=== PATIENT | female | born 1945 | race Caucasian/White ===

== ENCOUNTER 2018-08-23 08:30 | Inpatient (IN) | payer OTHER ==
[~2018-08-23] VITALS: Ht 144.8 cm; Wt 54.4 kg
[2018-08-23] MEDS ORDERED: IRBESARTAN150 MG (10:42)
[2018-08-23] MEDS ORDERED: HYDROCHLOROTHIA25 MG PO (11:06)
[2018-08-28] MEDS ORDERED: ASPIR-LOW81 MG PO (06:37)
[2018-08-28] MEDS ORDERED: OXYC1TAB9 PO (06:37)
[2018-08-28] MEDS ORDERED: DUI500 PO (06:37)
[2018-08-28] MEDS ORDERED: INTEGRA PLUS C1 EACH PO (06:37)
== END 2018-08-28 09:59 | disposition home or self-care (01) | DRG 483 ==
LOC: SURH 08-27 06:29 → O/R 08-27 06:29 → SURH 08-27 08:30
PROVIDERS: ADMIT Orthopaedic Surgery Sports Medicine
PROC: 0RRJ0JZ Replacement of Right Shoulder Joint with Synthetic Substitute, Open Approach (ICD-10-PCS; principal; 2018-08-27 15:00)
DX: M19.011 Primary osteoarthritis, right shoulder (principal); I10 Essential (primary) hypertension

== ENCOUNTER 2024-10-11 11:30 | Inpatient (IN) | payer OTHER ==
[~2024-10-11] VITALS: Ht 144.8 cm; Wt 54.4 kg
[~2024-10-11 11:30] MED LIST: ASPIR-LOW81 MG PO; DUI500 PO; HYDROCHLOROTHIA25 MG PO; INTEGRA PLUS C1 EACH PO; IRBESARTAN150 MG; OXYC1TAB9 PO
[2024-10-11 12:20] LABS: BASO % 0.5 % (0.1-1.2); EOS # 0.12 (0.04-0.54); EOS % 1.9 % (0.7-7.0); LYMPH # 1.49 (1.18-3.74); LYMPH % 24.0 % (19.3-53.1); MEAN PLATELET VOLUME 10.70 fl (9.4-12.4); MONO # 0.56 (0.24-0.82); MONO % 9.0 % (4.7-12.5); NEUT # 4.00 (1.56-6.13); NEUT % 64.4 % (34.0-71.1); RED CELL DISTRIBUTION WIDTH 12.6 % (11.6-14.4)
[2024-10-11 12:22] LABS: URINE APPEARANCE Clear; URINE BILIRRUBIN Negative (NEGATIVE); URINE BLOOD Moderate; URINE COLOR Yellow; URINE GLUCOSE Negative (NEGATIVE); URINE KETONE Negative (NEGATIVE); URINE LEUKOCYTE Negative; URINE NITRATE Negative; URINE PROTEIN Negative (NEGATIVE); URINE UROBILINOGEN 0.2 E.U./dl
[2024-10-11 12:23] LABS: URINE BACTERIA 4.7 uL (0.0-1933); URINE RBC 68.1 uL (0.0-20.8)
[2024-10-11 12:42] LABS: INR 0.94
[2024-10-11 12:44] VITALS: BP 143/81
[2024-10-11 12:48] LABS: URINE CAST 0.00 uL (0.0-1.40); URINE EPITHELIAL CELLS 0.6 uL (0.0-38.8); URINE WBC 0.4 uL (0.0-23.2)
[2024-10-11 13:08] LABS: ALT/SGPT 25.0 U/L (12-78); AST/SGOT 20.0 U/L (15-37); BILIRUBIN TOTAL 0.77 mg/dL (0.3-1.2); BUN CREA RATIO 43.0 (7.0-25.0); CREATININE SERUM 0.72 mg/dL (0.55-1.02); GFR 78.54; GLOBULINA 3.4 G/DL (2.4-3.5); GLUCOSE FASTING 94.0 mg/dL (65-100); OSMOLALITY SERUM 291.0 MOSM/KG (275-295)
[2024-10-11 14:19] LABS: RH NEGATIVE
[2024-10-21] MEDS ORDERED: KETOROLAC TROMETHAMINE 60 MG VIAL IM ONE (14:45)
[2024-10-21] MEDS ORDERED: LIDOCAINE HCL 1%/EPINEPHRINE 20ML VIAL IJ ONE (14:45)
[2024-10-21] MEDS ORDERED: TRANEXAMIC ACID 100MG/1ML (1000MG) AMPUL IV ONE (14:45)
[2024-10-21] MEDS ORDERED: BUPIVACAINE HCL 30 ML VIAL IJ ONE (14:45)
[2024-10-21] MEDS ORDERED: CEFAZOLIN SODIUM 1,000 MG VIAL IV ONE (14:45)
[2024-10-21] MEDS ORDERED: ONDANSETRON HCL 2 MG/ML VIAL IV PRN (17:15)
[2024-10-21] MEDS ORDERED: MORPHINE SULFATE 4 MG/ML CARTRIDGE IV PRN (17:15)
[2024-10-21] MEDS ORDERED: SODIUM CHLORIDE 0.45 % 1,000 ML IV SCH (17:15)
[2024-10-21] MEDS ORDERED: MORPHINE SULFATE 2 MG/ML CARTRIDGE IV NR (17:15)
[2024-10-21] MEDS ORDERED: CEFAZOLIN SODIUM 1,000 MG VIAL IV SCH (18:00)
[2024-10-21] MEDS ORDERED: SUGAMMADEX SODIUM 200 MG/2 ML VIAL IV ONE (19:00)
[2024-10-21 20:35] VITALS: BP 147/88; O2SAT 97
[2024-10-21] MEDS ORDERED: GENTAMICIN SULFATE 40 MG/ML VIAL IV SCH (21:00)
[2024-10-22 02:42] VITALS: BP 127/74; O2SAT 97
[2024-10-22 06:55] LABS: BASO % 0.1 % (0.1-1.2); EOS # 0.01 (0.04-0.54); EOS % 0.1 % (0.7-7.0); LYMPH # 1.14 (1.18-3.74); LYMPH % 15.6 % (19.3-53.1); MEAN PLATELET VOLUME 11.00 fl (9.4-12.4); MONO # 0.87 (0.24-0.82); MONO % 11.9 % (4.7-12.5); NEUT # 5.23 (1.56-6.13); NEUT % 71.9 % (34.0-71.1); RED CELL DISTRIBUTION WIDTH 12.3 % (11.6-14.4)
[2024-10-22] MEDS ORDERED: INTEGRA PLUS C1 EACH PO (08:06)
[2024-10-22] MEDS ORDERED: TRAM1TAB98 PO (08:07)
[2024-10-22] MEDS ORDERED: BACTRIM DS TAB1 EACH PO (08:08)
[2024-10-22 08:22] VITALS: BP 143/79; O2SAT 97
[2024-10-22] MEDS ORDERED: SENNA/DOCUSATE SODIUM 1 TAB TABLET PO SCH (09:00)
[2024-10-22] MEDS ORDERED: IRBESARTAN 75 MG TABLET PO SCH (09:00)
[2024-10-22] MEDS ORDERED: IRON FUM,PS/FOLIC/BCOMP,C NO.9 1 CAP CAPSULE PO SCH (09:00)
[2024-10-22] MEDS ORDERED: HYDROCHLOROTHIAZIDE 12.5 MG CAPSULE PO SCH (09:00)
[2024-10-22] MEDS ORDERED: RIVAROXABAN 10 MG TAB PO SCH (09:00)
[2024-10-22] MEDS ORDERED: BACITRACIN 28.35 GM OINT.TUBE TOP SCH (09:00)
== END 2024-10-22 09:57 | disposition home or self-care (01) | DRG 483 ==
LOC: SURH 10-21 07:00 → O/R 10-21 09:21 → SURH 10-21 11:30 → SURG 10-21 18:10
PROVIDERS: ADMIT Orthopaedic Surgery Sports Medicine; ATTEND Orthopaedic Surgery Sports Medicine
PROC: 0LS40ZZ Reposition Left Upper Arm Tendon, Open Approach (ICD-10-PCS; 2024-10-21)
PROC: 0PUD0JZ Supplement Left Humeral Head with Synthetic Substitute, Open Approach (ICD-10-PCS; 2024-10-21)
PROC: 0RRK00Z Replacement of Left Shoulder Joint with Reverse Ball and Socket Synthetic Substitute, Open Approach (ICD-10-PCS; principal; 2024-10-21 07:00)
DX: M19.012 Primary osteoarthritis, left shoulder (principal)